=== PATIENT | male | born 1960 | race Caucasian/White ===

== ENCOUNTER 2018-05-04 14:17 | Emergency (ER) | END 2018-05-04 21:23 | disposition home or self-care (01) ==

== ENCOUNTER 2018-05-17 09:52 | Emergency (ER) | END 2018-05-17 11:10 | disposition home or self-care (01) ==

== ENCOUNTER 2019-02-25 09:49 | Emergency (ER) | payer OTHER ==
[~2019-02-25] VITALS: Wt 90.6 kg
[~2019-02-25 09:49] MED LIST: CLIN300C10 PO; HYDR-4011 PO; IBUP-1542 PO; SULF1TAB31 PO
[2019-02-25] MEDS ORDERED: KETOROLAC 60 MG INJ IM STA (10:50)
[2019-02-25] MEDS ORDERED: NAPR-985 PO (11:38)
[2019-02-25] MEDS ORDERED: CEPH-443 PO (11:38)
--- NOTE | 2019-02-25 12:00 | ERD ---
ER Documentation Chief Complaint Chief Complaint r foot pain for the past 4 days. no trauma. no deformity or swelling HPI 58-year-old male patient with no significant history presents to ED complaining of right foot pain that started about 4 days ago. She reports that it is mainly in the right toe region. Patient denies any trauma or injuries. Denies any chest pain, shortness of breath, loss sensation, loss of range of motion. ROS All systems reviewed and are negative except as per history of present illness. Medications Home Meds Active Scripts Naproxen* (Naprosyn*) 500 Mg Tablet, 500 MG PO BID PRN for PAIN AND/OR INFLAMMATION, #30 TAB take with food Prov:KAMILA SADLER PA-C 02/25/19 Cephalexin* (Keflex*) 500 Mg Capsule, 500 MG PO QID for 7 Days, CAP Prov:KAMILA SADLER PA-C 02/25/19 Hydrocodone/Acetaminophen ([place] 5-325 Tablet) 1 Each Tablet, 1 TAB PO Q6H PRN for PAIN, #10 TAB Prov:FELIX SANCHEZ PA-C 05/04/18 Ibuprofen* (Motrin*) 600 Mg Tab, 600 MG PO Q6, #30 TAB Prov:FELIX SANCHEZC 05/04/18 Sulfamethoxazole/Trimethoprim* (Bactrim Ds* Tablet) 1 Each Tablet, 1 TAB PO BID, #20 TAB Prov:FELIX SANCHEZ PA-C 05/04/18 Clindamycin Hcl* (Clindamycin Hcl*) 300 Mg Capsule, 300 MG PO TID for 10 Days, CAP Prov:FELIX SANCHEZC 05/04/18 Allergies Allergies: Coded Allergies: No Known Allergy (Unverified , 05/04/18) PMhx/Soc History of Surgery: Yes (b/l knee ) Anesthesia Reaction: No Hx Neurological Disorder: No Hx Respiratory Disorders: No Hx Cardiac Disorders: Yes (htn) Hx Psychiatric Problems: No Hx Miscellaneous Medical Probl: No Hx Alcohol Use: Yes Hx Substance Use: No Hx Tobacco Use: Yes Smoking Status: Former smoker FmHx Family History: No diabetes, No coronary disease Physical Exam Vitals Vital Signs Date Temp Pulse Resp B/P (MAP) Pulse Ox O2 O2 Flow FiO2 Time Delivery Rate 02/25/19 97.3 64 18 122/76 98 Room Air 12:27 (91) 02/25/19 98.5 88 18 129/81 98 09:50 (97) Physical Exam Const: [id number]-[id number]-[id number], well-nourished. In no acute distress. Head: Atraumatic, normocephalic Eyes: Normal Conjunctiva without injection ENT: Normal external ear, nose and mouth. Neck: Full range of motion. No meningismus. Resp: Clear to auscultation bilaterally. No wheezing, rhonchi, rales, or crackles. No accessory muscle use. No retractions. Cardio: Regular rate and rhythm, no murmurs Skin: No petechiae or rashes Back: No midline tenderness. No CVA tenderness. Ext: No cyanosis, or edema. Cap refill less than 2 seconds. Distal pulses intact bilaterally. Tender to palpation of the right great toe with some erythema. Full range of motion with plantarflexion, dorsiflexion. Neur: Awake and alert. Normal gait and coordination. Muscle strength 5/5. Sensation intact bilaterally. Psych: Normal Mood and Affect Results 24 hrs Current Medications Medications Dose Sig/Shannon Start Time Status Last (Trade) Ordered Route PRN Stop Time Admin Dose Reason Admin Ketorolac 60 mg ONCE STAT 02/25/19 DC 02/25/19 Tromethamine IM 10:50 11:01 (Toradol) 02/25/19 10:52 Procedures/MDM 58 year-old male patient with no significant past medical history presents ED complaining of right foot pain that started 4 days ago. Patient is afebrile and nontoxic-appearing. No indication for x-rays at patient did not sustain any injuries or trauma. Patient was given Toradol 60 mg IM here in the ED slight improvement of his pain. Patient is using a cane to walk. Differentials include gout versus cellulitis. Patient's extremity symptoms have stabilized while they have been evaluated in the department and are appropriate for outpatient follow up. No evidence of fractures, dislocations, compartment syndrome, neurologic injury, vascular injury, open joint, open fracture, tendon laceration, septic arthritis, osteomyelitis, DVT, foreign body, or other emergent conditions. Diagnosis: Foot Pain Discharge medications: Naproxen, Keflex Follow up with primary care physician in 1-2 days. Instructed patient to return to the ED sooner for any worsening symptoms. Patient's questions were answered. Patient is hemodynamically stable. Patient understood and agreed with discharge plan. Patient discharged stable. Disclaimer: Inadvertent spelling and grammatical errors are likely due to EHR/dictation software use and do not reflect on the overall quality of patient care. Also, please note that the electronic time recorded on this note does not necessarily reflect the actual time of the patient encounter. Departure Diagnosis: Primary Impression: Foot pain Laterality: right Qualified Codes: M79.671 - Pain in right foot Condition: Stable Patient Instructions: What Is Gout?, Cellulitis, Gout Diet Referrals: [facility] YOU HAVE RECEIVED A MEDICAL SCREENING EXAM AND THE RESULTS INDICATE THAT YOU DO NOT HAVE A CONDITION THAT REQUIRES URGENT TREATMENT IN THE EMERGENCY DEPARTMENT. FURTHER EVALUATION AND TREATMENT OF YOUR CONDITION CAN WAIT UNTIL YOU ARE SEEN IN YOUR DOCTORS OFFICE WITHIN THE NEXT 1-2 DAYS. IT IS YOUR RESPONSIBILITY TO MAKE AN APPOINTMENT FOR FOLOW-UP CARE. IF YOU HAVE A PRIMARY DOCTOR --you should call your primary doctor and schedule an appointment IF YOU DO NOT HAVE A PRIMARY DOCTOR YOU CAN CALL OUR PHYSICIAN REFERRAL HOTLINE AT IF YOU CAN NOT AFFORD TO SEE A PHYSICIAN YOU CAN CHOSE FROM THE FOLLOWING [facility] [address] [facility]. [facility] [address] [facility]. [facility] [address] [facility] [facility] [address] [facility] [facility] [address] [facility]. [facility]. [address] [facility]. [facility] YOU HAVE RECEIVED A MEDICAL SCREENING EXAM AND THE RESULTS INDICATE THAT YOU DO NOT HAVE A CONDITION THAT REQUIRES URGENT TREATMENT IN THE EMERGENCY DEPARTMENT. FURTHER EVALUATION AND TREATMENT OF YOUR CONDITION CAN WAIT UNTIL YOU ARE SEEN IN YOUR DOCTORS OFFICE WITHIN THE NEXT 1-2 DAYS. IT IS YOUR RESPONSIBILITY TO MAKE AN APPOINTMENT FOR FOLOW-UP CARE. IF YOU HAVE A PRIMARY DOCTOR --you should call your primary doctor and schedule and appointment IF YOU DO NOT HAVE A PRIMARY DOCTOR YOU CAN CALL OUR PHYSICIAN REFERRAL HOTLINE AT . IF YOU CAN NOT AFFORD TO SEE A PHYSICIAN YOU CAN CHOSE FROM THE FOLLOWING [facility] INSTITUTIONS: [facility] [address] [place] [address] [facility] [address] [place] [address] [facility] [address] [place] [address] [facility] URGENT CARE/SPECIALTIES Additional Instructions: Call your primary care doctor TOMORROW for an appointment during the next 2-3 days for further evaluation of gout.See the doctor sooner or return here if your condition worsens before your appointment time. Follow up in 2 days in your clinic for wound check. KAMILA SADLER PA-C Feb 25, 2019 12:00
[2019-02-25 12:27] VITALS: BP 122/76; PULSE 64; RESP 18
== END 2019-02-25 12:28 | disposition home or self-care (01) ==
LOC: FTE 09:49
DX: M79.671 Pain in right foot (principal); I10 Essential (primary) hypertension; Z87.891 Personal history of nicotine dependence
CPT/HCPCS: 96372; J1885; Z7502

== ENCOUNTER 2019-05-26 12:06 | Emergency (ER) | payer OTHER ==
[~2019-05-26] VITALS: Ht 175.3 cm; Wt 90.9 kg
[~2019-05-26 12:06] MED LIST changes: +CEPH-443 PO; +NAPR-985 PO
[2019-05-26 12:27] VITALS: Ht 175.3 cm; Wt 90.9 kg
[2019-05-26] MEDS ORDERED: KETOROLAC 60 MG INJ IM STA (12:34)
--- NOTE | 2019-05-26 12:42 | ERD ---
ER Documentation Chief Complaint Chief Complaint bilateral ankle pain/injury HPI 58-year-old male with no significant past medical history presents with complaint of bilateral ankle pain for the past 8 months. Additionally states that he is also had sporadic elbow pain and other joint pain as well. States he has been to the hospital several times with same condition but it keeps coming back. Patient denies any edema, erythema, fevers, chills, numbness, weakness, tingling, history of trauma. ROS All systems reviewed and are negative except as per history of present illness. Medications Home Meds Active Scripts Naproxen* (Naprosyn*) 500 Mg Tablet, 500 MG PO BID PRN for PAIN AND/OR INFLAMMATION, #30 TAB take with food Prov:KAMILA SADLER PA-C 02/25/19 Cephalexin* (Keflex*) 500 Mg Capsule, 500 MG PO QID for 7 Days, CAP Prov:KAMILA SADLER PA-C 02/25/19 Hydrocodone/Acetaminophen ([place] 5-325 Tablet) 1 Each Tablet, 1 TAB PO Q6H PRN for PAIN, #10 TAB Prov:FELIX SANCHEZ PA-C 05/04/18 Ibuprofen* (Motrin*) 600 Mg Tab, 600 MG PO Q6, #30 TAB Prov:FELIX SANCHEZ PA-C 05/04/18 Sulfamethoxazole/Trimethoprim* (Bactrim Ds* Tablet) 1 Each Tablet, 1 TAB PO BID, #20 TAB Prov:FELIX SANCHEZ PA-C 05/04/18 Clindamycin Hcl* (Clindamycin Hcl*) 300 Mg Capsule, 300 MG PO TID for 10 Days, CAP Prov:FELIX SANCHEZ PA-C 05/04/18 Allergies Allergies: Coded Allergies: No Known Allergy (Unverified , 05/04/18) PMhx/Soc History of Surgery: Yes (b/l knee ) Anesthesia Reaction: No Hx Neurological Disorder: No Hx Respiratory Disorders: No Hx Cardiac Disorders: Yes (htn) Hx Psychiatric Problems: No Hx Miscellaneous Medical Probl: No Hx Alcohol Use: Yes Hx Substance Use: No Hx Tobacco Use: Yes FmHx Family History: No diabetes, No coronary disease, No other Physical Exam Vitals Vital Signs Date Temp Pulse Resp B/P (MAP) Pulse Ox O2 O2 Flow FiO2 Time Delivery Rate 05/26/19 97.9 59 20 108/59 100 12:27 (75) Physical Exam Const: No acute distress Head: Atraumatic Eyes: Normal Conjunctiva ENT: Normal External Ears, Nose and Mouth. Neck: Full range of motion. No meningismus. Resp: Clear to auscultation bilaterally Cardio: Regular rate and rhythm, no murmurs Abd: Soft, non tender, non distended. Normal bowel sounds Skin: No petechiae or rashes Back: No midline or flank tenderness Ext: No cyanosis, or edema, erythema, bony deformity, or tenderness palpation in all extremities and joints bilaterally. All compartments soft and warm. Distal sensation and pulses intact. Neur: Awake and alert Psych: Normal Mood and Affect Results 24 hrs Current Medications Medications Dose Sig/Shannon Start Time Status Last (Trade) Ordered Route PRN Stop Time Admin Dose Reason Admin Ketorolac 60 mg ONCE STAT 05/26/19 DC Tromethamine IM 12:34 (Toradol) 05/26/19 12:36 Procedures/MDM MDM: Patient's presentation is consistent with an either arthritis or gout. Patient was advised to follow-up with his primary care to get uric acid levels checked area patient was given 1 dose of Toradol in the ER and discharged with i buprofen. I have low suspicion for neurovascular compromise, compartment syndrome, fracture, osteomyelitis, septic joint, DVT, or other emergent condition. At this time, patient is stable for discharge and outpatient management. I have instructed the patient to follow-up with his/her primary care physician in 1-2 days. I have discussed with the patient the possibility of needing to see a specialist for further workup and imaging studies if symptoms persist. I have instructed the patient to promptly return to the ER for any new or worsening symptoms including but not limited to increased pain, fever, nausea, vomiting, weakness or LOC. The patient and/or family expressed understanding of and agreement with this plan. All questions were answered. Home care instructions were provided. DISCLAIMER: Inadvertent spelling and grammatical errors are likely due to EHR/dictation software use and do not reflect on the overall quality of patient care. Also, please note that the electronic time recorded on this note does not necessarily reflect the actual time of the patient encounter. Departure Diagnosis: Primary Impression: Joint pain Condition: Stable SYLWIA VACA May 26, 2019 12:42
[2019-05-26 13:22] VITALS: BP 137/85; PULSE 66; RESP 16
== END 2019-05-26 13:22 | disposition home or self-care (01) ==
LOC: FTE 12:06
DX: M25.571 Pain in right ankle and joints of right foot (principal); M25.572 Pain in left ankle and joints of left foot; I10 Essential (primary) hypertension; Z87.891 Personal history of nicotine dependence
CPT/HCPCS: 96372; J1885; Z7502